=== PATIENT | female | born 1980 | race Caucasian/White ===

== ENCOUNTER 2017-02-10 22:25 | Emergency (ER) | payer BC ==
[~2017-02-10] VITALS: Ht 165.1 cm; Wt 63.5 kg
[~2017-02-10 22:25] MED LIST: XANAX0.5 MG ORAL
--- NOTE | 2017-02-10 22:57 | Emergency Room Report ---
History of Present Illness General Chief Complaint: Alcohol Intoxication Source: Patient, EMS Present Illness HPI Is a 36-year-old female with unknown past medical history. She presents with altered mental status. [place] Bystander called 911 because she was bending over a flower pot vomiting. She has no trauma. Initially she refused transport but because of intoxicated state EMS brought her here. Patient admit to drinking tonight. Denies any other complaint. No drug use. No trauma. No suicidal thought homicidal thought. Allergies: Coded Allergies: No Known Allergies (Unverified , 12/01/15) Patient History Past Medical History: see triage record, old chart reviewed Past Surgical History: other Pertinent Family History: none Social History: Reports: alcohol use Last Menstrual Period: UNKNOWN Now: No Immunizations: other Reviewed Nursing Documentation: PMH: Agreed, PSxH: Agreed Nursing Documentation-PMH Past Medical History: No Stated History Review of Systems Eye: Denies: blurred vision, eye pain ENT: Denies: ear pain, nose congestion, throat swelling Respiratory: Denies: cough, shortness of breath Cardiovascular: Denies: chest pain, palpitations Gastrointestinal: Denies: abdominal pain, diarrhea, nausea, vomiting Musculoskeletal: Denies: back pain, joint pain Skin: Denies: rash Neurological: Denies: headache, numbness Endocrine: Denies: increased thirst, increased urine Hematologic/Lymphatic: Denies: easy bruising All Other Systems: negative except mentioned in HPI Physical Exam Vital Signs Date Time Temp Pulse Resp B/P Pulse Ox O2 Delivery O2 Flow Rate FiO2 02/10/17 22:21 88 18 114/81 98 Room Air vitals normal Sp02 EP Interpretation: reviewed, normal General Appearance: well appearing, no apparent distress, alert, other - Intoxicated Head: normocephalic, atraumatic Eyes: bilateral eye EOMI, bilateral eye PERRL ENT: hearing grossly normal, normal pharynx Neck: full range of motion, supple, no meningismus Respiratory: chest non-tender, lungs clear, normal breath sounds Cardiovascular #1: regular rate, rhythm, no murmur Gastrointestinal: normal bowel sounds, non tender, no mass, no organomegaly, no bruit, non-distended Musculoskeletal: back normal, normal range of motion, other - Unsteady gait Neurologic: alert Psychiatric: mood/affect normal Skin: warm/dry Medical Decision Making Diagnostic Impression: Primary Impression: Acute alcoholic intoxication Qualified Codes: F10.920 - Alcohol use, unspecified with intoxication, uncomplicated ER Course Patient presents with alcohol intoxication. No trauma. I see no need for x- ray or CT. We'll observe her until clinical sobriety or until someone can pick her up. Last Vital Signs Date Time Temp Pulse Resp B/P Pulse Ox O2 Delivery O2 Flow Rate FiO2 02/10/17 22:21 88 18 114/81 98 Room Air Status: improved Disposition: HOME, SELF-CARE Condition: Stable Referrals: [facility],REFERRING (PCP) Patient Instructions: Alcohol Intoxication, [id number] Additional Instructions: Abstain from drinking to excess. Followup with rehabilitation. Followup with your Dr. in 7 days. Return if worse. SOL MONROE M.D. February 10, 2017 22:56
[2017-02-11 04:48] VITALS: BP 114/81
== END 2017-02-11 04:50 | disposition home or self-care (01) ==
LOC: EDBD 22:25 → EMR 22:42
DX: F10.129 Alcohol abuse with intoxication, unspecified (principal); R41.82 Altered mental status, unspecified
CPT/HCPCS: 99284